=== PATIENT | female | born 1995 | race Caucasian/White ===

== ENCOUNTER 2023-01-14 12:28 | Inpatient (IN) | payer MEDICAID ==
[2023-01-14] MEDS ORDERED: Oxytocin/Lactated Ringers 10 UNIT/1,000 ML BAG IV SCH ×2 (15:30)
[2023-01-14] MEDS ORDERED: Nalbuphine 10 MG/0.5 ML Syringe IVPUSH PRN (15:30)
[2023-01-14] MEDS ORDERED: Lidocaine 1% 50 ML MDV INJECT PRN (15:30)
[2023-01-14 16:03] LABS: BASOPHILS ABSOLUTE AUTO 0.1 K/mm3 (0.0-0.2); BASOPHILS PERCENT AUTO 0.4 % (0.0-1.0); EOSINOPHILS PERCENT AUTO 0.2 % (0.0-6.0); HEMATOCRIT 42.5 % (37.0-47.0); HEMOGLOBIN 14.3 gm/dl (12.0-16.0); IMMATURE GRAN ABSOLUTE AUTO 0.09 K/mm3 (0.00-0.05); IMMATURE GRAN PERCENT AUTO 0.6 % (0.0-0.4); LYMPHOCYTES PERCENT AUTO 14.2 % (24.0-44.0); MEAN CORPUSCULAR HEMOGLOBIN 31.2 pg (28.0-32.0); MEAN CORPUSCULAR HGB CONC 33.6 g/dl (32.0-36.0); MEAN CORPUSCULAR VOLUME 92.6 fl (83.0-99.0); MEAN PLATELET VOLUME 9.9 fl (9.4-12.3); MONOCYTES PERCENT AUTO 7.1 % (0.0-8.0); NEUTROPHILS ABSOLUTE AUTO 10.8 K/mm3 (1.8-7.7); NEUTROPHILS PERCENT AUTO 77.5 % (41.0-71.0); PLATELET COUNT,PLT 268 K/mm3 (150-400); RED BLOOD CELL COUNT 4.59 M/mm3 (4.10-5.30); WHITE BLOOD CELL COUNT,WBC 13.99 K/mm3 (3.9-11.3)
[2023-01-14] MEDS: Lactated Ringers 1,000 ML IV SCH ×3 (19:07→22:16)
[2023-01-14] MEDS ORDERED: ePHEDrine 50 MG/ML SDV IVPUSH PRN (19:36)
[2023-01-14] MEDS ORDERED: diphenhydrAMINE 50 MG/ML SDV IVPUSH PRN (19:36)
[2023-01-14] MEDS: fentaNYL 100 MCG/2 ML SDV EPIDUR PRN (19:41)
[2023-01-14] MEDS: Bupivacaine/fentaNYL/NS 100 ML Bag EPIDUR PRN (19:42)
[2023-01-14] MEDS ORDERED: Ondansetron 4 MG/2 ML SDV IVPUSH PRN (21:42)
[2023-01-15] MEDS ORDERED: Lidocaine 2% with EPINEPHrine 1:200,000 20 ML SDV ONE
[2023-01-15] MEDS ORDERED: ePHEDrine 50 MG/ML SDV ONE
[2023-01-15] MEDS ORDERED: Bupivacaine 0.25% 10 ML SDV ONE ×2
[2023-01-15] MEDS: Bupivacaine/fentaNYL/NS 100 ML Bag EPIDUR PRN (02:16)
[2023-01-15] MEDS: fentaNYL 100 MCG/2 ML SDV EPIDUR PRN (03:16)
[2023-01-15] MEDS: Lactated Ringers 1,000 ML IV SCH (04:00)
[2023-01-15] MEDS ORDERED: Acetaminophen 325 MG Tab PO ONE (04:18)
[2023-01-15] MEDS ORDERED: SODIUM CHLORIDE 0.9% IV SCH (05:00)
[2023-01-15] MEDS ORDERED: GENTAMICIN IV SCH (05:00)
[2023-01-15] MEDS ORDERED: Nalbuphine HCl 10 MG/ 1ML Amp IVPUSH PRN (07:04)
[2023-01-15] MEDS ORDERED: Methylergonovine 0.2 MG/1 ML Amp IM STA (07:26)
[2023-01-15] MEDS ORDERED: Misoprostol 200 MCG Tab PO STA (07:26)
[2023-01-15] MEDS ORDERED: Carboprost Tromethamine 250 MCG/1 mL Vial IM ONE (07:30)
[2023-01-15] MEDS ORDERED: Benzocaine/Menthol 20%-0.5% Spray 78 GM Cannister TOP PRN (08:47)
[2023-01-15] MEDS ORDERED: Witch Hazel Medicated Pads 40/Jar TOP PRN (08:47)
[2023-01-15] MEDS: Ibuprofen 600 MG Tab PO PRN ×2 (09:34→17:02)
[2023-01-15] MEDS: Acetaminophen 325 MG Tab PO PRN ×3 (09:34→20:15)
[2023-01-15] MEDS: Docusate Sodium 100 MG Cap PO PRN (09:34)
[2023-01-16] MEDS: Ibuprofen 600 MG Tab PO PRN ×3 (00:15→21:11)
[2023-01-16] MEDS: Acetaminophen 325 MG Tab PO PRN ×2 (15:54→21:12)
[2023-01-16] MEDS: Docusate Sodium 100 MG Cap PO PRN (15:55)
[2023-01-17] MEDS: Ibuprofen 600 MG Tab PO PRN (03:27)
[2023-01-17] MEDS: Acetaminophen 325 MG Tab PO PRN (03:28)
[2023-01-17 05:55] LABS: HEMOGLOBIN 10.3 gm/dl (12.0-16.0); MEAN CORPUSCULAR HEMOGLOBIN 31.5 pg (28.0-32.0); MEAN CORPUSCULAR HGB CONC 33.2 g/dl (32.0-36.0); MEAN CORPUSCULAR VOLUME 94.8 fl (83.0-99.0); MEAN PLATELET VOLUME 9.3 fl (9.4-12.3); PLATELET COUNT,PLT 218 K/mm3 (150-400); RED BLOOD CELL COUNT 3.27 M/mm3 (4.10-5.30); WHITE BLOOD CELL COUNT,WBC 10.49 K/mm3 (3.9-11.3)
== END 2023-01-17 18:19 | disposition home or self-care (01) | DRG 806 ==
LOC: JD.OBCHECK 12:28 → JD.OB 12:35 → JD.OBCHECK 15:30 → JD.OB 17:10 → OBSVTOIN 01-15 06:57 → JD.OB 01-15 06:58
PROVIDERS: ADMIT Obstetrics & Gynecology; ATTEND Obstetrics & Gynecology
PROC: 10D07Z6 Extraction of Products of Conception, Vacuum, Via Natural or Artificial Opening (ICD-10-PCS; principal; 2023-01-15)
PROC: 0W8NXZZ Division of Female Perineum, External Approach (ICD-10-PCS; 2023-01-15)
PROC: 3E0R3BZ Introduction of Anesthetic Agent into Spinal Canal, Percutaneous Approach (ICD-10-PCS; 2023-01-15)
PROC: 00HU33Z Insertion of Infusion Device into Spinal Canal, Percutaneous Approach (ICD-10-PCS; 2023-01-15)
PROC: 10907ZC Drainage of Amniotic Fluid, Therapeutic from Products of Conception, Via Natural or Artificial Opening (ICD-10-PCS; 2023-01-15)
DX: O41.1230 Chorioamnionitis, third trimester, not applicable or unspecified (principal); O72.1 Other immediate postpartum hemorrhage; Z37.0 Single live birth; O75.81 Maternal exhaustion complicating labor and delivery; Z88.2 Allergy status to sulfonamides; Z3A.39 39 weeks gestation of pregnancy; Z88.8 Allergy status to other drugs, medicaments and biological substances; Z88.0 Allergy status to penicillin
CPT/HCPCS: 36415; 51701; 51702; 59025; 59409; 85025; 85027; 86592; 86850; 86900; 86901; A9270-GY; J1580; J2210; J2405; J2590; J3010; J3370; J3490; J7050; J7120